=== PATIENT | female | born 1965 | race Caucasian/White ===

== ENCOUNTER → 2017-05-18 14:45 | Outpatient (CLI) | payer MEDICARE | END | disposition home or self-care (01) | LOC: D.MAMMO 09:30 | DX: N64.4 Mastodynia (principal) ==

== ENCOUNTER 2017-12-01 11:18 | Emergency (ER) | payer MEDICARE | END 2017-12-01 12:33 | disposition home or self-care (01) | LOC: D.ER 11:18 | DX: Z86.59 Personal history of other mental and behavioral disorders (principal); F17.200 Nicotine dependence, unspecified, uncomplicated ==

== ENCOUNTER 2018-04-25 14:41 | Emergency (ER) | payer MEDICARE ==
[~2018-04-25] VITALS: Ht 172.7 cm; Wt 85.5 kg
[2018-04-25 15:10] VITALS: Ht 172.7 cm; Wt 85.5 kg
[2018-04-25] MEDS ORDERED: LAMICTAL100 MG PO (15:11)
[2018-04-25] MEDS ORDERED: AMBIEN10 MG PO (15:12)
[2018-04-25] MEDS ORDERED: XANAX0.25 MG (15:12)
[2018-04-25] MEDS ORDERED: NORCO 10-325 TA1 TAB PO (15:12)
[2018-04-25 15:35] LABS: BASOPHILS 0.3 % (0-2); EOSINOPHILS 0.8 % (0-7); HEMATOCRIT 41.4 % (36.0-48.0); HEMOGLOBIN 14.4 g/dL (12-16); IMMATURE GRANULOCYTES 0.1 % (0-5); LYMPHOCYTES 29.1 % (15-50); MCH 30.8 pg (26.0-34.0); MCHC 34.8 g/dL (31.0-37.0); MCV 88.5 fL (80.0-100.0); MEAN PLATELET VOLUME 10.2 fL (7.4-10.4); MONOCYTES 6.4 % (2-11); NEUTROPHILS 63.3 % (40-80); RBC 4.68 10x6/uL (4.00-5.40); RDW 13.3 % (11.5-14.5); WBC 7.7 10x3/uL (4.8-10.8)
[2018-04-25 15:51] LABS: APTT 27.2 SECONDS (22.8-39.4); INR 0.9 (0.85-1.17); PROTIME 11.8 SECONDS (11.6-15.0)
[2018-04-25 16:00] LABS: ALBUMIN 4.4 g/dL (3.4-5.0); ANION GAP 16.9 mmol/L (8-16); BILIRUBIN - TOTAL 0.24 mg/dL (0.2-1.3); CALCIUM 9.7 mg/dL (8.5-10.1); CARBON DIOXIDE 26.2 mmol/L (21.0-32.0); CREATININE - SERUM 0.9 mg/dL (0.6-1.3); POTASSIUM - SERUM 4.1 mmol/L (3.5-5.1); PROTEIN - SERUM 8.1 g/dL (6.4-8.2)
[2018-04-25 16:14] LABS: PLATELET COUNT 275 10x3/uL (130-400)
[2018-04-25 17:26] VITALS: BP 137/96
== END 2018-04-25 17:25 | disposition home or self-care (01) ==
LOC: D.ER 14:41
PROVIDERS: Family Medicine
DX: T43.595A Adverse effect of other antipsychotics and neuroleptics, initial encounter (principal); Y92.019 Unspecified place in single-family (private) house as the place of occurrence of the external cause; R20.2 Paresthesia of skin